=== PATIENT | male | born 1980 | race Caucasian/White ===

== ENCOUNTER 2017-07-01 03:37 | Emergency (ER) | payer BC, SELFPAY ==
[2017-07-01 03:38] VITALS: BP 156/109; PULSE 55; RESP 16; TEMP 36.5; O2SAT 100; BMI 24.3
--- NOTE | 2017-07-01 03:42 | EKG12_ITS ---
Test Reason : REPEAT CP Blood Pressure : / mmHG Vent. Rate : 062 BPM Atrial Rate : 062 BPM P-R Int : 168 ms QRS Dur : 092 ms QT Int : 390 ms P-R-T Axes : 038 047 055 degrees QTc Int : 395 ms Sinus rhythm with marked sinus arrhythmia with occasional Premature ventricular complexes Otherwise normal ECG Confirmed by MONTRELL LONG, AMINTA ([id number]), non linear editor ADARSH ROUSSEAU ([id number]) on 07/02/2017 3:18:39 PM Referred By: EDNA Confirmed By:AMINTA STOCK MD
--- NOTE | 2017-07-01 03:42 | RAD_ITS ---
STUDY: X-RAY CHEST REASON FOR EXAM: Male, 37 years old. Chest pain. TECHNIQUE: AP portable chest. COMPARISON: None. FINDINGS: The lungs are clear and expanded. There is no demonstrated pleural abnormality. Normal size heart. Normal mediastinum and raghav. Normal visualized pulmonary arteries. Normal visualized aortic arch and descending thoracic aorta. Normal visualized thoracic spine. Normal visualized ribs, clavicles, and shoulders. There is no demonstrated abnormality of the visualized soft tissue structures of the upper abdomen. RAD/Chest 1 View (Portable) IMPRESSION: Normal x-ray examination of the chest. Electronically Signed: Carter Bazan MD at 4:37 EDT , Service support ,
--- NOTE | 2017-07-01 03:42 | ED.RN ---
NO OLD EKG'S IN MUSE
--- NOTE | 2017-07-01 03:51 | ED.VISSUMM ---
- ER Visit Summary Date of Service: 07/01/17 Chief Complaint: Sternal and Right-sided chest pain History of Present Illness: The patient is a 37 M no significant past medical or surgical history. His recently gave to a new child and he was upstairs in the OB department with his . An hour ago he started getting sternal and right-sided chest pain. Also associated headache. And his when the come down and get checked out. Says never had anything like this before. Currently is on no medications. He has not been treated for anything recently. 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 He denies any associated nausea, diaphoresis or shortness of breath. Denies any back pain. He denies any radiation to his arms, back or extremities. He denies any numbness or weakness. He has never had a heart catheterization or stress test. He has no history of cardiac disease. He is a non-smoker. Denies drug use. His father did have an [place] at 56. He has had no recent travel, surgery or mobilization. No hemoptysis. No pleuritic chest pain. And no leg pain or swelling. Physical Examination: Well-appearing male. Vital signs are stable afebrile. HEENT exam is unremarkable. Pupils round reactive light. Neck nontender. Lungs clear to auscultation bilaterally. Heart regular rate and rhythm rate about 60 no murmur. Occasional PVC on the monitor. Chest wall nontender. Lungs clear to auscultation bilaterally. No rales rhonchi or wheezing. There is no subcu air or crepitance of the chest wall. No signs of trauma. No bony deformities. Abdomen is soft and nontender. No pulsatile mass. No peritoneal signs. He is moving all 4 extremities. They are neurovascularly intact. 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 Equal symmetrical and brisk radial pulses. Calves are nontender without edema. Dorsi plantar flexion is intact. Back exam nontender. Neurologic exam is normal. His NIH is 0. Test Results: EKG shows a sinus bradycardia rate of 51. There are occasional PVCs. There is no signs of acute NY or ischemia. Chest x-ray shows a normal cardiac silhouette and mediastinum. Read as normal both by myself and the radiologist. CBC is normal. Normal H&H. Chemistries normal. Troponin normal. Patient was given 3 sublingual nitro which did seem to resolve his discomfort. His pain returned a second EKG was done and was unchanged it was a sinus rhythm rate is 62 with PVCs again. Again no acute signs of NY or ischemia. Emergency Department Course and Treatment: Pt with atypical chest pain. Will undergo cardiac workup. He will be given sublingual nitro and aspirin. Treatment Plan: Multiple repeat exams the patient is doing well. Him and I does have a long discussion at 05 100. His exam remains normal. He is equal symmetrical radial pulses. His workup is negative other than PVCs. 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 My clinical suspicion for this being acute cardiac disease is actually very low. Especially given his workup being completely negative. Patient does not want to be admitted. Does not want any further testing. He wants to go back up and be with his and new daughter. I did offer him admission for further evaluation but he defers at this time. He states he normally does not like to go to the doctors and he does not feel he needs to be admitted to the hospital. He understands that this is atypical chest pain that we do not have a specific diagnosis for. Disposition: Discharge Impression: Acute chest pain of uncertain etiology This note was generated with [employer] dictation software. It may contain incorrect words, spelling, and punctuation that were not noted in review of the chart prior to signing ED Disposition - Plan for ED Patient: Chief Complaint: Chest Pain Referrals: NOT,DEFINED [Primary Care Provider] -
--- NOTE | 2017-07-01 03:55 | ED.DCSUM_ITS ---
- ER Visit Summary Date of Service: 07/01/17 Chief Complaint: Sternal and Right-sided chest pain History of Present Illness: The patient is a 37 M no significant past medical or surgical history. His recently gave to a new child and he was upstairs in the OB department with his . An hour ago he started getting sternal and right-sided chest pain. Also associated headache. And his when the come down and get checked out. Says never had anything like this before. Currently is on no medications. He has not been treated for anything recently. 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 He denies any associated nausea, diaphoresis or shortness of breath. Denies any back pain. He denies any radiation to his arms, back or extremities. He denies any numbness or weakness. He has never had a heart catheterization or stress test. He has no history of cardiac disease. He is a non-smoker. Denies drug use. His father did have an [place] at 56. He has had no recent travel, surgery or mobilization. No hemoptysis. No pleuritic chest pain. And no leg pain or swelling. Physical Examination: Well-appearing male. Vital signs are stable afebrile. HEENT exam is unremarkable. Pupils round reactive light. Neck nontender. Lungs clear to auscultation bilaterally. Heart regular rate and rhythm rate about 60 no murmur. Occasional PVC on the monitor. Chest wall nontender. Lungs clear to auscultation bilaterally. No rales rhonchi or wheezing. There is no subcu air or crepitance of the chest wall. No signs of trauma. No bony deformities. Abdomen is soft and nontender. No pulsatile mass. No peritoneal signs. He is moving all 4 extremities. They are neurovascularly intact. 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 Equal symmetrical and brisk radial pulses. Calves are nontender without edema. Dorsi plantar flexion is intact. Back exam nontender. Neurologic exam is normal. His NIH is 0. Test Results: EKG shows a sinus bradycardia rate of 51. There are occasional PVCs. There is no signs of acute MT or ischemia. Chest x-ray shows a normal cardiac silhouette and mediastinum. Read as normal both by myself and the radiologist. CBC is normal. Normal H&H. Chemistries normal. Troponin normal. Patient was given 3 sublingual nitro which did seem to resolve his discomfort. His pain returned a second EKG was done and was unchanged it was a sinus rhythm rate is 62 with PVCs again. Again no acute signs of MT or ischemia. Emergency Department Course and Treatment: Pt with atypical chest pain. Will undergo cardiac workup. He will be given sublingual nitro and aspirin. Treatment Plan: Multiple repeat exams the patient is doing well. Him and I does have a long discussion at 05 100. His exam remains normal. He is equal symmetrical radial pulses. His workup is negative other than PVCs. 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 My clinical suspicion for this being acute cardiac disease is actually very low. Especially given his workup being completely negative. Patient does not want to be admitted. Does not want any further testing. He wants to go back up and be with his and new daughter. I did offer him admission for further evaluation but he defers at this time. He states he normally does not like to go to the doctors and he does not feel he needs to be admitted to the hospital. He understands that this is atypical chest pain that we do not have a specific diagnosis for. Disposition: Discharge Impression: Acute chest pain of uncertain etiology This note was generated with [employer] dictation software. It may contain incorrect words, spelling, and punctuation that were not noted in review of the chart prior to signing ED Disposition - Plan for ED Patient: Chief Complaint: Chest Pain Referrals: NOT,DEFINED [Primary Care Provider] -
[2017-07-01 03:56] VITALS: BP 145/92; PULSE 60
[2017-07-01] MEDS: Aspirin 81 MG TAB.CHEW 324 MG PO (03:56)
[2017-07-01 04:01] VITALS: BP 115/65; PULSE 75
[2017-07-01 04:08] VITALS: BP 104/69; PULSE 67
[2017-07-01 04:22] LABS: Absolute Lymphocyte Count 3.88 X10^3/ul (0.83-4.51); Absolute Neutrophil Count 5.5 X10^3/uL (2.0-7.7); Basophil% 0.9 % (0-1); Eosinophils% 6.3 % (0-5); Hematocrit 45.9 % (40-54); Hemoglobin 15.6 g/dl (13.0-16.5); Lymphocyte # 3.88 X10^3/ul (4.0); Lymphocyte % 34.9 % (19-41); Mean Corpuscular Hgb 30.3 pg (27.0-32.0); Mean Corpuscular Volume 89.1 fL (80-94); Mean Platelet Vol. 12.9 fl (6.2-12.0); Monocyte# 0.89 X10^3/uL; Neutrophil # 5.53 X10^3/uL (2.7-7.7); Neutrophil % 49.6 % (47-70); Platelet Count 190 K/mm3 (150-450); RBC Distribution Width CV 12.8 % (11.6-14.6); RBC Distribution Width SD 41.7 fl (35.1-43.9); Red Blood Count 5.15 M/mm3 (4.6-6.2); White Blood Count 11.1 K/mm3 (4.4-11.0)
--- NOTE | 2017-07-01 04:24 | EKG12_ITS ---
Test Reason : CP Blood Pressure : / mmHG Vent. Rate : 051 BPM Atrial Rate : 051 BPM P-R Int : 148 ms QRS Dur : 092 ms QT Int : 396 ms P-R-T Axes : 033 050 057 degrees QTc Int : 364 ms Sinus bradycardia with Premature atrial complexes Otherwise normal ECG Confirmed by MONTRELL LONG, AMINTA ([id number]), editor in chief ADARSH ROUSSEAU ([id number]) on 07/02/2017 3:19:10 PM Referred By: EDNA Confirmed By:AMINTA STOCK MD
[2017-07-01 04:36] LABS: Anion Gap 7 (5-15); BUN 6 mg/dL (7-18); BUN/Creat Ratio 6.1 RATIO (10-20); Calcium,Total 8.4 mg/dL (8.5-10.1); Chloride 103 mmol/L (98-107); Creatinine, Serum 0.98 mg/dL (0.70-1.30); EST Glomerular Filtration Rate 91 mL/min (>60); Est Glom Filt Rate - Afr Amer 110 mL/min (>60); Estimated Creatinine Clearance 104.49 ml/min; Glucose 96 mg/dL (74-106); Potassium 3.9 mmol/L (3.5-5.1); Sodium Level 142 mmol/L (136-145)
[2017-07-01 04:37] VITALS: BP 116/80; PULSE 73; RESP 17; O2SAT 99
[2017-07-01 04:40] LABS: POSITIVE COUNT NO; POSITIVE DIFFERENTIAL NO; POSITIVE MORPHOLOGY NO
[2017-07-01] MEDS: Acetaminophen 500 MG Tablet 1000 MG PO (04:41)
--- NOTE | 2017-07-01 05:03 | ED.DEP ---
ED Disposition - Plan for ED Patient: Disposition: Home or Assisted Living Chief Complaint: Chest Pain Instructions: ED Chest Pain Atypical Unkn Cause Referrals: Joey Hunter MD [STAFF PHYSICIAN] - As soon as possible Additional Instructions: Both EKGs, chest x-ray and lab work were normal. There is no specific diagnosis for your chest pain at this time. He will be discharged to home. Call and follow-up with Dr. Joey Hunter so he can obtain a primary care physician and have further evaluation as needed. Return to the ER if you are feeling worse.
[2017-07-01 05:10] VITALS: BP 115/78; PULSE 56; RESP 16; O2SAT 95
== END 2017-07-01 05:20 | disposition home or self-care (01) ==
LOC: ED 05:12
PROVIDERS: Emergency Provider Emergency Medicine
DX: R07.9 Chest pain, unspecified (principal)
CPT/HCPCS: 71045; 80048; 84484; 85025; 93005; 99284; A4216

== ENCOUNTER → 2018-09-06 | Outpatient (CLI) | payer BC, SELFPAY ==
[2018-09-06 09:35] LABS: Pathologist Comment May follow
[2018-09-06 10:43] LABS: RBC /Synovial Fluid 0.003 10^6/uL (0); Synovial Fld Mononuclear WBC % 55.2 %; Synovial Fld Polynuclear WBC # 0.253 10^3/ul; Synovial Fld Polynuclear WBC % 44.8 %
[2018-09-06 10:48] LABS: AUTO B FLUID DILUENT BKGD CT WBC <0.1 RBC <0.01 (W<.1,R<.01); Appearance /Synovial Fluid Cloudy (CLEAR); Color / Synovial Fluid Yellow (Pale Yellow); Source / Synovial Fluid RT KNEE; Source- Body Fluid SYNOVIAL; Viscosity / Synovial Fluid Sl. Viscous (HIGH)
[2018-09-06 11:20] LABS: Lymph 6 %; Monocyte /Synovial Fluid 39 %; Neutrophil 55 % (0-25)
[2018-09-06 11:23] LABS: Body Fluid QC Type(s) BF1Q
[2018-09-10 10:28] LABS: Pathologist Review Reviewed
== END | disposition home or self-care (01) ==
PROVIDERS: Referring Provider Physician Assistant Surgical; Visit Provider Physician Assistant Surgical
DX: M25.461 Effusion, right knee (principal)
CPT/HCPCS: 87070; 87075; 87077; 87186; 87205; 89050; 89051; 89060

== ENCOUNTER 2018-10-09 06:37 | Day surgery (SDC) | payer BC, SELFPAY ==
--- NOTE | 2018-09-13 22:48 | PCM.HP.BLA ---
History and Physical DATE OF SURGERY: 10/09/2018 SCHEDULED PROCEDURE: Right knee prepatellar bursectomy irrigation debridement HISTORY OF PRESENT ILLNESS: Preoperative history and physical exam was performed on September 13, 2018. This is a 38-year-old male who has been having ongoing pain and swelling in his right knee for the past 4 months. Patient has had a previous swelling that did become better on its own. He was seen in the office on September 06, 2018 in which an aspiration was performed. Approximately 170 cc of fluid was removed and sent for cultures. Cultures did come back showing coag negative staph infection consistent with possible contamination. Patient was placed on doxycycline. Patient denies any previous trauma or injury. Pain at best is a 1/10 at worst 3/10. He denies numbness and tingling. Denies any instability in the knee. Denies any locking or catching. 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 He does significant amount of climbing on ladders and walking. Patient has tried braces and knee sleeves in the past. Swelling has continued to come back. After aspiration the swelling came back within one week. He denies any recent fevers, chills, recent infections. Patient denies any medical complications. After discussion with the patient the patient does wish to proceed with a right knee prepatellar bursectomy with irrigation debridement. REVIEW OF SYSTEMS: ROS: Const: Denies change in appetite, fever and weight change. CV: Denies chest pain, heart murmur and irregular heartbeat. Resp: Denies cough, pneumonia, shortness of breath, tuberculosis and wheezing. GI: Denies constipation, diarrhea, heartburn, nausea, rectal itching, bloody stools and vomiting. : Denies incontinence. Musculo: Denies leg swelling, pain, trouble walking and weakness. Skin: Reports tattoo, but denies Raynaud's and history of shingles. Neuro: Denies ambulatory dysfunction, dizziness, numbness/tingling and tremor. Psych: Reports insomnia and stress, but denies anxiety. John/Lymph: Denies anemia, bleeding/bruising tendency and past transfusion. Reviewed and updated. PAST MEDICAL HISTORY: Advance Care Plan: No Advance Directives Effective Date: 09/06/2018 PMH: Medical Problems: No Current Problems Accidents: Fracture - (1995) Lt hand - Dr. 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 SOCIAL HISTORY: SH: Marital: .Occupation: Currently Working - [employer] - [employer].Work Status: Currently Working.Hand Dominance: Ambidextrous. Personal Habits: Cigarette Use: Never Smoked Cigarettes.Smokeless Tobacco: Current Smokeless Tobacco User - Chew.E-Cigarette Use: Never used.Alcohol: Denies use.Drug Use: Denies Use.Enjoy Exercising: Daily. Reviewed, no changes. VITALS: Ht: 70 Wt: 170lb Wt k.112 BMI: 24.4 BP: 142/80 Pulse: 64 Resp: 16 T: 96.6 T: 35.9C ALLERGIES: No Known Drug Allergy MEDICATIONS: Tramadol HCL 50 mg 1-2 by mouth every 6 hours as needed pain, Doxycycline Monohydrate 100 mg 1 by mouth twice a day, Advil 200 mg 2-3 tabs PO bid prn PRE-OP EXAM: General appearance:NORMAL Other: Eyes: Conjunctivae and lids: NORMAL Pupils: ERR Ears, Nose, Mouth, and Throat: NORMAL Other: Inspection of lips, teeth and gums: NORMAL Other: Neck: Examination of neck: no masses noted. Respiratory: Assessment of respiratory effort: NORMAL Other: Auscultation of lungs: clear to auscultation no wheezes, rhonchi or rales. Cardiovascular: Auscultation of heart: regular rate and rhythm, no murmurs, gallops or rubs. Gastrointestinal: Exam of abdomen: soft, nontender, nondistended bowel sounds present. PHYSICAL EXAMINATION: Right knee reveals significant swelling over the prepatellar bursa. Right knee is without significant warmth. Nontender to palpation. Range of motion 0 of extension to 135 flexion. Stable to varus and valgus stress test, stable to anterior/posterior drawer. Patient walks with a minimal limping gait. Sensation intact to light touch. IMAGING STUDIES: Previous x-rays of the right knee reveal no appreciable fracture or dislocation. There is large soft tissue swelling over the anterior aspect of the right knee. No lytic or blastic lesions. Joint spaces are well maintained. IMPRESSION: 1. Right knee prepatellar bursitis with failure conservative measures PLAN: I did discuss and review with the patient all treatment options including surgical versus nonsurgical options. Patient does wish to proceed with the above-stated procedure. Potential risks, benefits, and complications of the procedure were discussed in detail including but not limited to , infection, nerve and blood vessel damage, persistent pain, numbness, tingling, paresthesias, blood clot, pulmonary embolism, and requirement for possible further surgery. The patient expressed full understanding and has no further questions for the doctor. Patient does agree to proceed with the above-stated procedure and has signed the surgery consent form. This dictation was created using voice recognition software. Phonetic and/or grammatical errors may exist. ___ I have re-examined the patient. There are no clinical changes since date of exam. ___ See progress notes for changes. ___ Dictated on admission Date: Time: Signature:
--- NOTE | 2018-09-13 22:56 | HP.PCM_ITS ---
History and Physical DATE OF SURGERY: 10/09/2018 SCHEDULED PROCEDURE: Right knee prepatellar bursectomy irrigation debridement HISTORY OF PRESENT ILLNESS: Preoperative history and physical exam was performed on September 13, 2018. This is a 38-year-old male who has been having ongoing pain and swelling in his right knee for the past 4 months. Patient has had a previous swelling that did become better on its own. He was seen in the office on September 06, 2018 in which an aspiration was performed. Approximately 170 cc of fluid was removed and sent for cultures. Cultures did come back showing coag negative staph infection consistent with possible contamination. Patient was placed on doxycycline. Patient denies any previous trauma or injury. Pain at best is a 1/10 at worst 3/10. He denies numbness and tingling. Denies any instability in the knee. Denies any locking or catching. 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 He does significant amount of climbing on ladders and walking. Patient has tried braces and knee sleeves in the past. Swelling has continued to come back. After aspiration the swelling came back within one week. He denies any recent fevers, chills, recent infections. Patient denies any medical complications. After discussion with the patient the patient does wish to proceed with a right knee prepatellar bursectomy with irrigation debridement. REVIEW OF SYSTEMS: ROS: Const: Denies change in appetite, fever and weight change. CV: Denies chest pain, heart murmur and irregular heartbeat. Resp: Denies cough, pneumonia, shortness of breath, tuberculosis and wheezing. GI: Denies constipation, diarrhea, heartburn, nausea, rectal itching, bloody stools and vomiting. : Denies incontinence. Musculo: Denies leg swelling, pain, trouble walking and weakness. Skin: Reports tattoo, but denies Raynaud's and history of shingles. Neuro: Denies ambulatory dysfunction, dizziness, numbness/tingling and tremor. Psych: Reports insomnia and stress, but denies anxiety. John/Lymph: Denies anemia, bleeding/bruising tendency and past transfusion. Reviewed and updated. PAST MEDICAL HISTORY: Advance Care Plan: No Advance Directives Effective Date: 09/06/2018 PMH: Medical Problems: No Current Problems Accidents: Fracture - (1995) Lt hand - Dr. 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 SOCIAL HISTORY: SH: Marital: .Occupation: Currently Working - [employer] - [employer].Work Status: Currently Working.Hand Dominance: Ambidextrous. Personal Habits: Cigarette Use: Never Smoked Cigarettes.Smokeless Tobacco: Current Smokeless Tobacco User - Chew.E-Cigarette Use: Never used.Alcohol: Denies use.Drug Use: Denies Use.Enjoy Exercising: Daily. Reviewed, no changes. VITALS: Ht: 70 Wt: 170lb Wt k.112 BMI: 24.4 BP: 142/80 Pulse: 64 Resp: 16 T: 96.6 T: 35.9C ALLERGIES: No Known Drug Allergy MEDICATIONS: Tramadol HCL 50 mg 1-2 by mouth every 6 hours as needed pain, Doxycycline Monohydrate 100 mg 1 by mouth twice a day, Advil 200 mg 2-3 tabs PO bid prn PRE-OP EXAM: General appearance:NORMAL Other: Eyes: Conjunctivae and lids: NORMAL Pupils: ERR Ears, Nose, Mouth, and Throat: NORMAL Other: Inspection of lips, teeth and gums: NORMAL Other: Neck: Examination of neck: no masses noted. Respiratory: Assessment of respiratory effort: NORMAL Other: Auscultation of lungs: clear to auscultation no wheezes, rhonchi or rales. Cardiovascular: Auscultation of heart: regular rate and rhythm, no murmurs, gallops or rubs. Gastrointestinal: Exam of abdomen: soft, nontender, nondistended bowel sounds present. PHYSICAL EXAMINATION: Right knee reveals significant swelling over the prepatellar bursa. Right knee is without significant warmth. Nontender to palpation. Range of motion 0 of extension to 135 flexion. Stable to varus and valgus stress test, stable to anterior/posterior drawer. Patient walks with a minimal limping gait. Sensation intact to light touch. IMAGING STUDIES: Previous x-rays of the right knee reveal no appreciable fracture or dislocation. There is large soft tissue swelling over the anterior aspect of the right knee. No lytic or blastic lesions. Joint spaces are well maintained. IMPRESSION: 1. Right knee prepatellar bursitis with failure conservative measures PLAN: I did discuss and review with the patient all treatment options including surgical versus nonsurgical options. Patient does wish to proceed with the above-stated procedure. Potential risks, benefits, and complications of the procedure were discussed in detail including but not limited to , infecti on, nerve and blood vessel damage, persistent pain, numbness, tingling, paresthesias, blood clot, pulmonary embolism, and requirement for possible further surgery. The patient expressed full understanding and has no further questions for the doctor. Patient does agree to proceed with the above-stated procedure and has signed the surgery consent form. This dictation was created using voice recognition software. Phonetic and/or grammatical errors may exist. ___ I have re-examined the patient. There are no clinical changes since date of exam. ___ See progress notes for changes. ___ Dictated on admission Date: Time: Signature:
[2018-10-09 07:04] VITALS: BP 145/90; PULSE 50; RESP 16; TEMP 36.6; O2SAT 100; BMI 24.2
--- NOTE | 2018-10-09 09:10 | BUR_PTH ---
PATIENT: LUCIANO NIXON III LOC: [facility] U#:[id number] AGE/SX: 38/M ROOM: RE10/09/[address]: Dr. Tiago Jurado MD : 1980 BED: DIS: 10/09/2018 SPEC #: [id number] RECD: 10/09/18 14:53 STATUS: TAYLOR REFred #: [id number] BLAINE: 10/09/18 09:[address]: Tiago Jurado DEPT: SURGICAL PATHOLOGY RECD BY: Josef Lund ENTERED: 10/10/18 09:41 SP TYPE: BURSA LURDES DR: No Primary Care Phys Tissues: Bursa, NOS Procedures: Surgery Specimen Level III HEADER OPERATION: Excision prepatellar bursectomy, knee PRE-OP DIAGNOSIS: Effusion right knee, pain right knee TISSUE SUBMITTED: Bursa debris, right knee MICROSCOPIC DIAGNOSIS Right knee, bursa debris, prepatellar bursectomy: Fibroadipose tissue with reactive synovial changes and focal chronic inflammation. CE:jennifer 10/11/18 MICROSCOPIC DESCRIPTION Slides are reviewed. GROSS DESCRIPTION Received in fixative is one container labeled with the patient's name and designated bursa debris, right knee. The specimen consists of a flattened portion of lopez-white fibromembranous soft tissue with adherent lopez-yellow, slightly fatty nodular tissue. The specimen measures 6.5 x 5 x 0.5 cm. Stock Speculator sections are submitted in one cassette. / CE:jennifer 10/10/18 TC:3 CPT: 15747
[2018-10-09] MEDS: Cefazolin 2 GM in 0.9% Normal Saline 100 ML IV (10:29)
--- NOTE | 2018-10-09 11:15 | OP.PCM_ITS ---
Report of Operation Date of Procedure: 10/09/18 Pre-Operative Diagnosis: Right knee large prepatellar bursitis, recurrent Post-Operative Diagnosis: Right knee large prepatellar bursitis, recurrent Surgery/Procedure Performed:: Complete resection right knee prepatellar bursitis Description of Surgical Findings:: Large undermining prepatellar bursa sac completely debrided ichthyology teacher: Sergio Segundo Type of Anesthesia:: General Anesthesiologist: Joey Fernandez Special Medications: Ancef Estimated Blood Loss (mL): 10 Fluids Replaced: 300ml crystalloid Description of Procedure: On the date of the procedure patient was seen and evaluated in the emergency department. We discussed surgery which include but is not limited to blood loss, DVTs, PEs, neurovascular damage, infection, the risk of anesthesia. We also discussed MRI results and physical exam findings. Plan is noted in the H&P. Procedure: On date of procedure patient's right knee was marked in the preoperative area. Patient was brought back to the operating room with her transferred to the table in supine position. Anesthesia assumed control the C- spine and airway and administered anesthetic. After patient was properly anesthetized bump was placed underneath the right hip a trach was placed on the right upper thigh. Right lotion was then prepped in a sterile fashion while surgeon scrubbed. Upon entering the room the right lower extremity was draped in sterile fashion timeout was called. Everyone agreed upon the side, the site from the procedure be performed, patient's identity and the antibiotics given. Esmarch bandage was used to examine it extremity and tourniquet was placed to 250 mmHg. Midline incision was made and immediately once we got through the skin at this time patient we approached a fluid from a bursa sac. After completing the skin incision we were able to explore the extent of the bursa sac which undermined our incision roughly 6 to 8 cm proximally and 6 to 8 cm distally. We carefully obtained some culture specimen as well as specimen for pathology. Once this was completed we then carefully meticulously debrided the synovial pseudo-capsule lining of the bursa. First medially then laterally making careful not to puncture the skin in this then patient. After we had done this medially we went laterally and then proximally and distally. Very careful not to disrupt normal structures. Once this was completed we had large undermined areas as noted previously 60 mm proximally 6 to 8 mm distally and 8 to 10 mm medially and laterally. We elected to place a drain. The drain was opened. At this time the wound was subjected to a 1 minute Irrisept lavage followed by 3 L of normal saline under low pressure. Once this was completed the wound was adequately dried and the drain was placed superior laterally. Once this was done #1 Vicryl was used to mattress the medial lateral recesses down. We then used 2-0 Vicryl to close the skin and final skin closure was done with bibiana. NISHANT drain was connected. Xeroform dressing was placed. Compressive dressing was placed. Patient was placed in a knee immobilizer. Patient was awakened by anesthesia and transferred to PACU for recovery after tourniquet was let down. Postop plan: Patient will be weightbearing as tolerated in his knee immobilizer. No flexion of the knee for 2 weeks. At 2 weeks we will begin range of motion. Patient will return to the office in 48 hours to have his drain removed. She has previous aspiration positive for coag negative staph. We will place him on 2 weeks of doxycycline 100 mg twice daily. - Complications No intraoperative complications - Admit VTE Documentation VTE Present on Admission: No VTE Mechan Device Prophylaxis: SCD's VTE Pharm Prophylaxis ordered?: No Reason prophylaxis not ordered:: Treatment Not Indicated
[2018-10-09 11:34] VITALS: BP 108/81; BP 145/90; PULSE 64; RESP 16; TEMP 36.5; O2SAT 98
[2018-10-09 11:45] VITALS: BP 123/82; BP 145/90; PULSE 55; RESP 16; O2SAT 99
[2018-10-09 11:59] VITALS: BP 129/86; BP 145/90; PULSE 59; RESP 16; TEMP 36.3; O2SAT 100
[2018-10-09 12:30] VITALS: BP 113/59; BP 145/90; PULSE 45; RESP 16; TEMP 36; O2SAT 100
== END 2018-10-09 12:40 | disposition home or self-care (01) ==
LOC: SDC 06:38 → AC 06:38
PROVIDERS: Referring Provider Specialist; Visit Provider Specialist
PROC: (CPT 27340; principal; 2018-10-09 09:00)
DX: M70.41 Prepatellar bursitis, right knee (principal); F17.220 Nicotine dependence, chewing tobacco, uncomplicated
CPT/HCPCS: 01320; 27340; 87015; 87070; 87075; 87102; 87116; 87176; 87205; 87206; 88304; J7120; J2405